=== PATIENT | female | born 1945 | race Caucasian/White ===

== ENCOUNTER → 2020-12-23 | Day surgery (SDC) | payer MEDICARE, OTHER ==
[~2020-12-23] MED LIST: FELODIPINE ER10 MG PO; HCTZ25 MG PO; PREMARIN0.9 MG PO; SYNTHROID88 MCG PO; VITAMIN D350 MCG PO
[2020-12-23 07:31] LABS: HCT 40.4 % (37.0-47.0); HGB 13.5 g/dl (12.5-16.0); MCH 30.5 pg (25.0-31.0); MCHC 33.4 g/dL (32.0-36.0); MCV 91.4 fL (78.0-100.0); MPV 11.8 fL (6.0-9.5); RBC 4.42 M/uL (4.20-5.40); RDW 14.3 % (11.5-14.0); WBC 5.6 K/uL (4.0-10.5)
[2020-12-23 08:01] LABS: ALBUMIN 3.8 g/dL (3.4-5.0); BILIRUBIN - TOTAL 0.5 mg/dL (0.2-1.0); BUN/CREAT RATIO (CALC) 28.2 RATIO; CREATININE 0.78 mg/dL (0.51-0.95); GLOBULIN (CALCULATION) 3.9 g/dL; POTASSIUM 3.4 mmol/L (3.5-5.1); TOTAL PROTEIN 7.7 g/dL (6.4-8.2)
== END | disposition home or self-care (01) ==
LOC: FAS 07:00
PROVIDERS: Surgery
DX: Z12.11 Encounter for screening for malignant neoplasm of colon (principal); K57.30 Diverticulosis of large intestine without perforation or abscess without bleeding; E03.9 Hypothyroidism, unspecified; G47.30 Sleep apnea, unspecified; I10 Essential (primary) hypertension; Z79.890 Hormone replacement therapy; Z80.0 Family history of malignant neoplasm of digestive organs; Z86.010 Personal history of colon polyps; Z99.89 Dependence on other enabling machines and devices
CPT/HCPCS: 36415; 80053; J2704; J7120